=== PATIENT | male | born 1945 | race Caucasian/White ===

== ENCOUNTER 2021-10-13 13:17 | Emergency (ER) | payer MEDICARE, SELFPAY ==
[2021-10-13 13:18] VITALS: BP 155/75; PULSE 79; RESP 16; TEMP 36; BMI 29.5
--- NOTE | 2021-10-13 14:10 | CT_ITS ---
INDICATION: trauma EXAMINATION: CT BRAIN - CT Head or Brain W/O Contrast Injection TECHNIQUE: Multiple axial images were obtained of the head without intravenous contrast. A radiation dose optimization technique was used for this scan. IV Contrast dosage and agent: None. COMPARISON: No previous for comparison FINDINGS: HEMISPHERES: 1. The cerebral parenchyma, ventricular system, subarachnoid spaces have normal configuration. 2. Mild involutional changes and chronic microvascular deep white matter disease are present. 3. No intraparenchymal mass, hemorrhage, or acute territorial infarct. CEREBELLUM - BRAINSTEM: The cerebellum, brainstem, basilar and suprasellar cisterns have normal appearance. No Chiari malformation. PITUITARY: Infundibulum and pituitary have normal configuration. Midline structures appear normal. CSF SPACES: Appropriate for age. No hydrocephalus. Basal cisterns are patent. VESSELS: 1. Scattered calcifications in the cavernous carotid vessels. 2. No hyperdense vascular signs noted.. ORBITS AND PARANASAL SINUSES: 1. Normal appearance of the bony orbits. Normal appearance of the globes and retrobulbar soft tissues.. 2. Mucous retention cysts noted in the maxillary antra. Remaining paranasal sinuses are clear, no fluid or blood in the paranasal sinuses middle ear cavities or mastoid air cells. BONY ELEMENTS: Bony elements of the cranial vault, facial skeleton and skull base have normal appearance. SCALP AND SOFT TISSUES: RIGHT frontal and RIGHT periorbital soft tissue swelling, and findings consistent with a laceration along the lateral aspect of the RIGHT orbit. No evidence of radiopaque foreign bodies. No associated fractures noted. OTHER: None ASPECTS Score for Acute Strokes: 10 CT/Brain/Head without Contrast IMPRESSION: 1. Diffuse involutional changes and chronic microvessel deep white matter disease. 2. No mass, hemorrhage, or acute territorial infarct. 3. No intracranial evidence of acute traumatic injury. 4. RIGHT frontal and RIGHT periorbital soft tissue swelling/bruising and evidence of a soft tissue skin laceration lateral to the RIGHT orbit. No underlying fractures or radiopaque foreign body noted. 5. No fluid or blood in the paranasal sinuses middle ear cavities or mastoid air cells. 6. Mucous retention cysts in the maxillary antra bilaterally. 7. No intracranial mass, hemorrhage or acute territorial infarct. 8. 9. No radiographically significant disease. Electronically Signed: Sudhakar Shaikh MD at 15:20 EST Tel , Service support ,
--- NOTE | 2021-10-13 14:14 | EX.ED.DYSGE1 ---
HPI History of Present Illness Chief Complaint: Head Injury Informant: patient Onset/Context/Timing Onset: Today Current Severity: Mild Maximum Severity: Mild Narrative Narrative: Patient presents after fall and head injury. He fell in the driveway this morning striking his forehead. He has a 4 cm laceration over the right forehead. He denies loss of consciousness. No neck pain. He is not on anticoagulants. [facility] Medical History High cholesterol Home Medications Fish Oil 1 cap BID 10/13/21 [History Last Taken Unknown] aspirin 81 mg PO DAILY 10/13/21 [History Last Taken Unknown] cholecalciferol (vitamin D3) [Vitamin D3] 50 mcg PO BID 10/13/21 [History Last Taken Unknown] simvastatin DAILY 10/13/21 [History Last Taken Unknown] Allergy/AdvReac Type Severity Reaction Status Date / Time No Known Allergies Allergy Verified 10/13/21 13:20 Social History Smoking Status: Never smoker ROS ROS ED Constitutional Constitutional ED: Denies chills or fever(s) Eyes Eyes: Denies change in vision ENT ENT ED: Denies sore throat Cardiovascular Cardiovascular: Denies chest pain Respiratory/Chest Respiratory/Chest: Denies cough or dyspnea Gastrointestinal Gastrointestinal: Denies abdominal pain, diarrhea, nausea or vomiting Genitourinary Genitourinary ED: Denies dysuria Musculoskeletal Musculoskeletal: Denies back pain Integumentary Reports other Details: Forehead laceration ; Denies rash Neurologic Neurologic: Reports headache(s); Denies weakness Allergic/Immunologic Allergic/Immunologic ED: Denies urticaria EXAM Physical Exam Const Vital Signs: 10/13/21 13:18 10/13/21 13:37 Temperature 96.8 F L Temperature Source Temporal Pulse Rate 79 Respiratory Rate 16 Respiratory Effort Normal Non-Labored Respiratory Depth Normal Respiratory Pattern Normal Blood Pressure 155/75 H Blood Pressure Mean 101 Oxygen Delivery Method Room Air Positive well nourished and well developed General Appearance ED: well developed HEENT HEENT Narrative: 4 cm laceration over the right forehead. Bleeding well controlled. Eyes EOMs intact bilaterally Neck no lymphadenopathy and supple Neck Narrative: No C-spine tenderness. Resp normal respiratory effort and clear to auscultation bilaterally Cardio regular rate and regular rhythm GI non-tender Palpation: soft Extremity normal to inspection Neuro oriented x3 and no sensory deficits noted Sensorium / Orientation: alert Motor Exam: strength 5/5 throughout Psych mental status grossly normal MDM MDM MDM Narrative Medical decision making narrative: Head CT obtained. Tetanus update provided. Radiography Diagnostic Testing: Clinical Impression(s) from Imaging Studies Brain CT 10/13/21 14:10 IMPRESSION: 1. Diffuse involutional changes and chronic microvessel deep white matter disease. 2. No mass, hemorrhage, or acute territorial infarct. 3. No intracranial evidence of acute traumatic injury. 4. RIGHT frontal and RIGHT periorbital soft tissue swelling/bruising and evidence of a soft tissue skin laceration lateral to the RIGHT orbit. No underlying fractures or radiopaque foreign body noted. 5. No fluid or blood in the paranasal sinuses middle ear cavities or mastoid air cells. 6. Mucous retention cysts in the maxillary antra bilaterally. 7. No intracranial mass, hemorrhage or acute territorial infarct. 8. 9. No radiographically significant disease. Electronically Signed: Sudhakar Shaikh MD at 15:20 EST Tel , Service support , Treatment and Re-Evaluation Comments:: CT head shows soft tissue swelling. No intracranial abnormality. Procedures Lacerations Forehead laceration: Length: 1.57 in Depth: Sub Q Shape: Linear Laceration repair: Irrigated and Lidocaine Number of Sutures/Toñito: 6 Suture Information: Ethilon, Simple and 5-0 Comment: Wound anesthetized with 3 cc of 1% lidocaine. Wound was cleansed and irrigated. 6 simple interrupted sutures of 5-0 nylon placed. Wound care instructions provided. Patient is to have sutures removed in 5 to 7 days. Discharge Plan Triage Chief Complaint: Head Injury ED Provider: Lillie Cesar Dx/Rx/DC Orders Clinical Impression: Forehead laceration, Closed head injury Instructions: ED Head Injury (Adult), ED Laceration: All Closures Prescriptions: No Action aspirin 81 mg Tablet 81 mg PO DAILY RF: 0 cholecalciferol (vitamin D3) [Vitamin D3] 50 mcg (2,000 unit) Capsule 50 mcg PO BID RF: 0 Fish Oil 1 cap BID RF: 0 simvastatin DAILY RF: 0 Primary Care Provider: Destiny Ann Referrals: Destiny Ann MD [Primary Care Provider] - 7 Days for suture removal Disposition Disposition: Home, Self Care
[2021-10-13] MEDS: Diphth,Pertuss(Acell),Tet Vac 0.5 ML Vial IM (14:25)
[2021-10-13 16:09] VITALS: BP 156/78; PULSE 91; RESP 16; TEMP 36.6; O2SAT 99
[2021-10-13] MEDS: Lidocaine 1% (20 ml mdv) 20 ML Vial INFILT (16:17)
== END 2021-10-13 16:18 | disposition home or self-care (01) ==
PROVIDERS: Emergency Provider Emergency Medicine; PCP Internal Medicine; Visit Provider Emergency Medicine
DX: S01.81XA Laceration without foreign body of other part of head, initial encounter (principal); W19.XXXA Unspecified fall, initial encounter; Z79.82 Long term (current) use of aspirin; Z79.899 Other long term (current) drug therapy
CPT/HCPCS: 12011; 70450; 90715; 99284

== ENCOUNTER 2024-12-09 13:00 | Outpatient (RCR) | payer MEDICARE, SELFPAY ==
--- NOTE | 2024-11-04 14:02 | HP.PTEVAL ---
Patient's Visit Information Visit Information Visit Information: ROSARIO GALAVIZ is a 79 year old M referred to Physical Therapy by Dr. Rosario Barr MD with a diagnosis of gait instability. Date of Evaluation: 11/04/24 Physical Therapist: Alex Smith, DPT, OCS, CSCS Visit Plan Frequency: 2x /Week Duration: 4-6 Weeks Plan: 2x/week for 4-6 weeks for... Teaching of HEp to include FW weight shifting, vestibular balance challenges, [id number] home b ased strength, postural strength and focus. Write it down once I due to Alzheimers and work to I. HS stretching and gastroc stretching also. IE: reviewed options with PT and recommend walking program at home, and wearing shoes in the house to see if he shuffles. Subjective Subjective: I am having balance issues. Seeing Dr. Barr for Alzheimers. Balance issues are noticable with walking with dtr and might list one way or another. Worse on uneven ground across country. says he slouches. No falls. Treeating alzheimers with meds. No numbness or tingling or neuropathy. No spinning. Sleep is OK with CPAP. LB has chronic pain. No cane or walker Lives with , non steps. Condominium. Not employed. spends days sitting and working puzzles and reading and , garage stuff and small hand tools. Avoids climbing ladders due to balance and heights. No regular exercises. Feels good on flat surfaces as far as balance goes. Shuffles in gait often constant according to . Objective Objective: Walks hunched over but I, tightness apparent in pecs . I gait. Trasnfers withut UE I, Bed trasnfer I. Stps reciprocally up without rail and needing rail to descend. coordination to reciprocal toe adn heel tap is poor, heel to nielsen test is limited lift. reflexes 2/3 patella adn achilles B Sensation to gross light touch in B LE. strength hips 3+ and core instability with some back pain with hip flexion testing., knee strength 4- flex and ext, ankles are 4+. HS max tight at -45 90/90 tst adn achilles tight at 0 DF. Balance/Special Test Scores Functional Gait Assessment Score: 24 % Disability: 20.0000 CATSIB Score (Max score 120 seconds): 120 Lower Extremity Functional Score: 52 TUG Test Time Seconds: 7 30 Second Chair Rise Test Seconds: 15 Goals Goal 1:: 25/ FGA Goal Time Frame: 4-6 Weeks Goal 2:: I appropriate HEP to limit future prob lems(strength posture, stretching, vest/FW weight shfit balance) Goal Time Frame: 4-6 Weeks Goal 3:: stand up tall and walk without VC. Goal Time Frame: 4-6 Weeks Goal 4:: Pt feel 75% betteer in overall steadiness. Goal Time Frame: 4-6 Weeks Rehabilitation Potential Physical Therapy Diagnosis: imbalance feeling and swaying and weakness and sedentairsm effecting gait Rehabilitation Potential: Good Anticipated Interventions Patient/Client Instruction: Educate patient on: Condition and Plan of Care For the Purpose of:: To decrease pain, To increase ROM, To improve nutrient delivery to tissue, To improve muscle performance and motor function and To increase tolerance to activity/condition/position Therapeutic Exercise to Include: Strength training and Flexibilty training For the Purpose of:: To improve muscle performance and motor function, To increase tolerance to activity/condition/position, To improve gait and locomotor functions and To improve safety Text: Thank you for the opportunity to evaluate your patient. For Medicare and Medicare HMO plans, please review the plan of care and approve it. It will need to be FAXED BACK to us at [phone] for Medicare purposes. For Medicare only, by signing this I certify the plan of care. Please let me know if there are questions or concerns regarding this plan of care. Physician Signature: Date:
--- NOTE | 2024-12-01 13:54 | HP.PTREVAL_ITS ---
Re-Evaluation Intro: Dr. Rosario Barr MD, It has been my pleasure to treat ROSARIO GALAIVZ over the last 8 visits for gait instability. Please see the progress note below for an update on the physical therapy plan of care! Subjective Subjective: Going th right way. I felt the stretching is helping. Back pain is strange but worse after being in thee gym. Feeling a little more stable. No falls. Activities pretty normal, avoids step ladder when not around. 30% better. HEP trying to be regular. Wants to continue PT, 1x/week. Objective Objective/Function: FGA is improving nicely and getting close to normal for age. HEP band not getting done, had to revisit walking program today. Overall improved but still has a biut to go to gain I with HEP. same goals to wean therapy weekly x 4 weks with good prognosis. Plan Plan Plan: weekly x 4 to progreess HEP each time in with pics each time please. Do in here as he will do at home...(ensure compliance with HEP and ensure written down for him) Can work on Nustep and show tilt board in thrapy funcitonal area for bart carreons 1. weight shifting balance to HEP week one 2. general LE strength/fucniton weekk2 3. combined weight shift LE strength week 3. Balance/Gait/Functional tests Balance/Special Test Scores Functional Gait Assessment Score: 26 % Disability: 13.3400 CATSIB Score (Max score 120 seconds): 120 Lower Extremity Functional Score: 60 TUG Test Time Seconds: 7 Tug Test: <10 sec.=free mobile 30 Second Chair Rise Test Seconds: 15 Goals Goals Goal 1:: 25/30 FGA Goal Time Frame: 4-6 Weeks Goal Progress: Goal Met Goal 2:: I appropriate HEP to limit future prob lems(strength posture, stretching, vest/FW weight shfit balance) Goal Time Frame: 4-6 Weeks Goal Progress: Progressing Goal 3:: stand up tall and walk without VC. Goal Time Frame: 4-6 Weeks Goal Progress: Progressing Goal 4:: Pt feel 75% betteer in overall steadiness. Goal Time Frame: 4-6 Weeks Goal Progress: 30% Anticipated Interventions Anticipated Interventions Patient/Client Instruction: Educate patient on: Condition and Plan of Care For the Purpose of:: To decrease pain, To increase ROM, To improve nutrient delivery to tissue, To improve muscle performance and motor function and To increase tolerance to activity/condition/position Therapeutic Exercise to Include: Strength training and Flexibilty training For the Purpose of:: To improve muscle performance and motor function, To incre ase tolerance to activity/condition/position, To improve gait and locomotor functions and To improve safety Re-Evaluation Ending Re-evaluation ending: Please do not hesitate to contact me at [phone] by phone or if you have questions or concerns regarding this new plan of care! Sincerely, Alex Smith, DPT, OCS, CSCS
--- NOTE | 2024-12-16 14:16 | HP.PTDCSUM_ITS ---
Discharge Summary D/C summary: It has been my pleasure to treat ROSARIO GALAVIZ referred by Dr. Rosario Barr MD, with the diagnosis of gait instability for a total of 9 visit(s). Discharge Date: Please see the following information for a summary of their discharge status. Subjective Subjective: Pt arrives to session with right sided low back pain. Does not want to do any exercise today but wanted to talk about his current symptoms. Pt to see Dr. Kitchen next week for a physical. Overall Improvement % Improvement: 30 Objective Objective/Function: Pt wants to cancel today, see his primary care physician for recommendations. Discussed high probability of physical therapy referral for evaluation. Does not wish to speak with a PT today as he doesn't want to do an ything until he sees his doctor. Goals Goal 1:: FGA Goal Progress: Goal Met Goal 2:: I appropriate HEP to limit future prob lems(strength posture, stretching, vest/FW weight shfit balance) Goal Progress: Progressing Goal 3:: stand up tall and walk without VC. Goal Progress: Progressing Goal 4:: Pt feel 75% betteer in overall steadiness. Goal Progress: 30% Plan Plan: weekly x 4 to progreess HEP each time in with pics each time please. Do in here as he will do at home...(ensure compliance with HEP and ensure written down for him) Can work on Nustep and show tilt board in thrapy funcitonal area for silver sneakers 1. weight shifting balance to HEP week one 2. general LE strength/fucniton weekk2 3. combined weight shift LE strength week 3. D/C Information d/c sentence: If there are questions or concerns regarding this patient's physical therapy, please feel free to call me at [phone]. Thank you for the referral of this patient. Sincerely, Alex Smith, DPT, OCS, CSCS Balance/Gait/Functional tests Balance/Special Test Scores Functional Gait Assessment Score: 26 % Disability: 13.3400 CATSIB Score (Max score 120 seconds): 120 Lower Extremity Functional Score: 60 TUG Test Time Seconds: 7 Tug Test: <10 sec.=free mobile 30 Second Chair Rise Test Seconds: 15 Improvement % Improvement: 30
== END 2024-12-09 19:00 | disposition home or self-care (01) ==
LOC: PT 13:00
PROVIDERS: PCP Internal Medicine; Referring Provider Psychiatry & Neurology Neurology; Visit Provider Psychiatry & Neurology Neurology
DX: R26.81 Unsteadiness on feet (principal)
CPT/HCPCS: 97110; 97161; 97530